=== PATIENT | female | born 1995 | race African-American/Black ===

== ENCOUNTER 2018-09-27 13:46 | Emergency (ER) | payer OTHER ==
[2018-09-27 15:17] VITALS: BP 146/91
[2018-09-27] MEDS ORDERED: IBUPROFEN 800 MG TABLET PO ONE (15:51)
[2018-09-27] MEDS ORDERED: DIPH/PERTUSS(ACELL)/TETANUS VAC/PF 0.5 ML SYR (>=10YO) IM ONE (15:51)
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
== END 2018-09-27 17:55 | disposition home or self-care (01) ==
LOC: ER 13:46
DX: S50.312A Abrasion of left elbow, initial encounter (principal); S80.212A Abrasion, left knee, initial encounter; S09.90XA Unspecified injury of head, initial encounter; M25.522 Pain in left elbow; M25.532 Pain in left wrist; M25.552 Pain in left hip; M25.562 Pain in left knee; V13.9XXA Unspecified pedal cyclist injured in collision with car, pick-up truck or van in traffic accident, initial encounter; Y93.89 Activity, other specified; R11.0 Nausea; J45.909 Unspecified asthma, uncomplicated; F12.10 Cannabis abuse, uncomplicated; Z23 Encounter for immunization
CPT/HCPCS: 90471; 90715; 99283